=== PATIENT | female | born 1945 | race Caucasian/White ===

== ENCOUNTER 2018-01-24 06:11 | Inpatient (IN) | payer MEDICARE, OTHER ==
--- NOTE | 2018-01-20 20:46 | HP ---
HISTORY OF PRESENT ILLNESS: The patient is a 72-year-old female with a past medical history of cardi ac myxoma on Plavix, but an otherwise relatively good health who presented to our office for evaluati on of progression of neck pain with radiation into the right shoulder, some dysesthesias to her hands and mild clumsiness of hand use and walking. An updated MRI revealed fairly significant degenerativ e findings at C5-C6 with a central herniated disk with significant cord compression. Therefore, C5-C 6 ACDF was recommended by Dr[address] Mancera for management of this condition. He discussed the risks, abbey efits, alternatives, and the patient expressed understanding and wished to proceed. PAST MEDICAL HISTORY: Type 2 diabetes, hypertension, thyroid disorder, coronary artery disease, card iac myxoma. PAST SURGICAL HISTORY: Hysterectomy, left second finger surgery, appendectomy, cholecystectomy, lopez ract surgery, right kidney stone removal, right knee surgery, back surgery. FAMILY HISTORY: Noncontributory. CURRENT MEDICATIONS: Januvia, isosorbide mononitrate, glimepiride, lisinopril, Plavix, Ventolin, Vol brien, Zofran, fenugreek, edgardo, vitamins, , meclizine, cinnamon, B12, cranberry, Est er C tablets, zinc, Zyrtec, nitroglycerin, fish oil, calcium, vitamin E. SOCIAL HISTORY: The patient does not smoke, drink or use any drugs. REVIEW OF SYSTEMS: Per HPI. PHYSICAL EXAMINATION: CONSTITUTIONAL: Comfortable, in no acute distress. HEENT: PERRLA. Extraocular movements intact. Oral mucosa pink, intact and moist. Normal voice. NECK: Nontender to palpation. Free active range of motion, no meningismus or nuchal rigidity. CARDIOVASCULAR: Regular rate and rhythm. LUNGS: The patient is breathing comfortably. No evidence of dyspnea. MUSCULOSKELETAL: Good muscle tone in bilateral upper and lower extremities. No reflex asymmetry or focal motor weakness. NEUROLOGIC: Alert and oriented x4. No focal motor neurologic deficits are appreciated. ASSESSMENT: Cervicalgia, cervical degenerative disk disease with cervical myelopathy. PLAN: C5-C6 ACDF scheduled for 01/24/2018.
[2018-01-21 12:15] VITALS: BMI 36.2
[2018-01-24 07:09] LABS: #Eosinphils 0.1 thou/uL (0.0-0.7); #Monocytes 0.8 thou/uL (0.11-0.59); #Neutrophils 4.9 thou/uL (1.40-6.50); %Basophils 0.2 % (0.0-1.0); %Eosinophils 1.2 % (0.0-10.0); %Neutrophils 55.6 % (42.0-75.0); Hemoglobin 14.1 g/dL (12.0-16.0); Mean Corpuscular Hemoglobin 29.6 pg (27.0-31.0); Mean Corpuscular Volume 89.7 fl (81.0-99.0); Mean Platelet Volume 6.4 fL (7.4-10.4); Platelet Count 241 thou/uL (130-400); RBC Distribution Width 12.5 % (11.5-14.5); Red Blood Cell (RBC) Count 4.76 mill/uL (4.20-5.40); White Blood Cell (WBC) Count 8.8 thou/uL (4.8-10.8)
[2018-01-24] MEDS ORDERED: Clindamycin/D5W 900 mg/50 ml Premix Bag ONE (07:12)
[2018-01-24] MEDS ORDERED: Levofloxacin 500 mg/D5W 100 ml Premix Bag ONE (07:12)
[2018-01-24 07:20] LABS: Anion Gap 14 mmol/L (10-20); BUN (Urea Nitrogen) 13 mg/dL (9.8-20.1); Calc. Creatinine Clearance 108 mL/min (70-130); Carbon Dioxide 27 mmol/L (23-31); Chloride 99 mmol/L (98-107); Estimated GFR-MDRD 80; Glucose 163 mg/dL (83-110); Potassium 3.6 mmol/L (3.5-5.1); Sodium 136 mmol/L (136-145)
[2018-01-24] MEDS ORDERED: Sodium Chloride 0.9% 10 ML ONE (08:19)
[2018-01-24] MEDS ORDERED: Famotidine/PF 20 mg/2ml Vial ONE (08:20)
[2018-01-24] MEDS ORDERED: Ondansetron HCl/PF 4 MG/2 ML Vial ONE ×2 (08:20→16:44)
[2018-01-24] MEDS ORDERED: Fentanyl 250 MCG/5 ML VIAL ONE ×2 (08:20→10:02)
--- NOTE | 2018-01-24 10:06 | OP ---
DATE OF PROCEDURE: 01/24/2018 SURGEON: Brian Mancera M.D. PRODUCT SAFETY MANAGER: Charles Renteria PA-C PROCEDURE: Anterior cervical discectomy C5-6, interbody arthrodesis, intravertebral biomechanical de vice, local morselized autograft, demineralized bone matrix, anterior titanium instrumentation C5-6. PROCEDURE IN DETAIL: The patient was brought into the operating room, intubated. She was rolled in the prone position on gel-filled chest rolls. Incision made exposing C5 and C6 and our level was con firmed by x-ray. We debrided anterior osteophytes, placed distraction across the disc space and usin g the operating microscope and microdissection techniques, completely decompressed the intravertebral discs down to the level of the dura. Next, the bony endplates were decorticated for the purpose of arthrodesis and appropriately sized intravertebral biomechanical PEEK device was brought into the fie ld, filled with demineralized bone matrix and local morselized autograft, and tapped into place secur neri at C5-6. Next, an anterior plate was brought in the field and secured to C5, and C6 using two 14 mm screws at each level. The wound was then extensively irrigated, immaculate hemostasis was secure d, and the wound was closed in anatomic layers.
[2018-01-24] MEDS ORDERED: HYDROcodone/Acetaminophen 5/325 mg Tablet ONE (12:27)
[2018-01-24] MEDS ORDERED: PROPOFOL 200 MG/20 ML VIAL ONE (16:44)
[2018-01-24] MEDS ORDERED: Dexamethasone 20 MG/5 ML VIAL ONE (16:44)
[2018-01-24] MEDS ORDERED: Lidocaine 1% PF 5 ML VIAL ONE (16:44)
[2018-01-24] MEDS ORDERED: Glycopyrrolate 0.2 MG/ML 5 ML SYRINGE ONE (16:44)
--- NOTE | 2018-01-27 17:26 | EKG ---
Test Reason : PREOP Blood Pressure : / mmHG Vent. Rate : 084 BPM Atrial Rate : 084 BPM P-R Int : 148 ms QRS Dur : 086 ms QT Int : 386 ms P-R-T Axes : 065 -16 052 degrees QTc Int : 456 ms Normal sinus rhythm Normal ECG No previous ECGs available Confirmed by DR. Ginny LIND ([id number]) on 01/27/2018 5:26:32 PM Referred By: LONI Confirmed By:DR. Ginny LIND
== END 2018-01-24 14:00 | disposition home or self-care (01) | DRG 473 ==
LOC: SURG A 06:11
PROVIDERS: ADMIT Neurological Surgery; ATTEND Neurological Surgery
PROC: 0RT30ZZ Resection of Cervical Vertebral Disc, Open Approach (ICD-10-PCS; principal; 2018-01-24)
PROC: 0RG20AJ Fusion of 2 or more Cervical Vertebral Joints with Interbody Fusion Device, Posterior Approach, Anterior Column, Open Approach (ICD-10-PCS; 2018-01-24)
PROC: 00NW0ZZ Release Cervical Spinal Cord, Open Approach (ICD-10-PCS; 2018-01-24)
DX: M50.022 Cervical disc disorder at C5-C6 level with myelopathy (principal); E11.9 Type 2 diabetes mellitus without complications; D15.1 Benign neoplasm of heart; Z79.01 Long term (current) use of anticoagulants; I10 Essential (primary) hypertension; I25.10 Atherosclerotic heart disease of native coronary artery without angina pectoris; Z79.84 Long term (current) use of oral hypoglycemic drugs
CPT/HCPCS: 36415; 76000; 80048; 85025; 93005; 93010; 96374; A4216; C1713; C1776; J0131; J1100; J1956; J2001; J2405; J2704; J3010; J3370; J3490; S0028